=== PATIENT | female | born 1985 | race Hispanic/Latino ===

== ENCOUNTER → 2018-01-08 | Outpatient (CLI) | payer MEDICAID ==
[~2018-01-08] MED LIST: DOXY100C40 PO; SOTA80TA PO
== END | disposition home or self-care (01) ==
LOC: SHCH 14:25
PROVIDERS: ATTEND Internal Medicine Cardiovascular Disease
DX: I42.2 Other hypertrophic cardiomyopathy (principal); I50.32 Chronic diastolic (congestive) heart failure; I51.7 Cardiomegaly; I48.0 Paroxysmal atrial fibrillation; E11.9 Type 2 diabetes mellitus without complications
CPT/HCPCS: 93306

== ENCOUNTER 2018-02-20 18:04 | Emergency (ER) | payer MEDICAID ==
[2018-02-20] MEDS ORDERED: HYDROCODONE/ACETAMINOPHEN 5/325 MG TAB ONE (19:42)
== END 2018-02-20 20:10 | disposition home or self-care (01) ==
LOC: EDH 18:04
DX: Z48.01 Encounter for change or removal of surgical wound dressing (principal); E11.9 Type 2 diabetes mellitus without complications

== ENCOUNTER → 2019-04-29 | Outpatient (CLI) | payer MEDICAID | END | disposition home or self-care (01) | LOC: SHCH 11:01 | PROVIDERS: ATTEND Internal Medicine Cardiovascular Disease | DX: I42.2 Other hypertrophic cardiomyopathy (principal); R06.00 Dyspnea, unspecified | CPT/HCPCS: 93306; 93356 ==

== ENCOUNTER 2021-11-13 14:37 | Emergency (ER) | payer MEDICAID ==
[~2021-11-13] VITALS: Ht 165.1 cm; Wt 72.6 kg
[~2021-11-13 14:37] MED LIST changes: +DOXY-336 PO; -DOXY100C40 PO
[2021-11-13 15:57] VITALS: BP 110/62
[2021-11-13] MEDS ORDERED: IBUPROFEN 600 MG TABLET PO ONE (16:00)
[2021-11-13] MEDS ORDERED: IBUP-2070 PO (16:07)
[2021-11-13] MEDS ORDERED: IBUPROFEN 600 MG TABLET ONE (16:07)
== END 2021-11-13 16:23 | disposition home or self-care (01) ==
LOC: EDH 14:37
DX: S62.633A Displaced fracture of distal phalanx of left middle finger, initial encounter for closed fracture (principal); E11.9 Type 2 diabetes mellitus without complications; Z88.1 Allergy status to other antibiotic agents; Z95.810 Presence of automatic (implantable) cardiac defibrillator; X58.XXXA Exposure to other specified factors, initial encounter; Y93.89 Activity, other specified; Y92.89 Other specified places as the place of occurrence of the external cause; Y99.8 Other external cause status
CPT/HCPCS: 29130; 73140

== ENCOUNTER 2021-12-02 15:38 | Emergency (ER) | payer MEDICAID ==
[~2021-12-02] VITALS: Ht 167.6 cm; Wt 68.9 kg
[~2021-12-02 15:38] MED LIST changes: +IBUP-2070 PO
[2021-12-02] MEDS ORDERED: LIDOCAINE 1%-EPI 1:100,000 20 ML VIAL IJ SCH (16:30)
[2021-12-02] MEDS ORDERED: SULFAMETHOX-TMP DS 800/160 TAB PO SCH ×2 (16:30→17:30)
[2021-12-02] MEDS ORDERED: ONDANSETRON ODT 4MG TAB SL ONE (16:30)
[2021-12-02] MEDS ORDERED: MORPHINE 4 MG SYG IM ONE (16:30)
[2021-12-02 17:20] VITALS: BP 133/72
[2021-12-02] MEDS ORDERED: SULF1TAB42 PO (17:23)
[2021-12-02] MEDS ORDERED: OXYC-38 PO (17:23)
[2021-12-02] MEDS ORDERED: IBUP-2077 PO (17:23)
[2021-12-02] MEDS ORDERED: OXYCODONE/ACETAMIN 5/325MG TAB PO ONE (17:30)
== END 2021-12-02 17:37 | disposition home or self-care (01) ==
LOC: EDH 15:38
DX: L02.31 Cutaneous abscess of buttock (principal); E11.9 Type 2 diabetes mellitus without complications; Z79.1 Long term (current) use of non-steroidal anti-inflammatories (NSAID); Z88.1 Allergy status to other antibiotic agents; Z95.810 Presence of automatic (implantable) cardiac defibrillator
CPT/HCPCS: 99284; 10060; 96372; J3490; J2270

== ENCOUNTER 2022-08-27 16:59 | Emergency (ER) | payer MEDICAID ==
[~2022-08-27] VITALS: Ht 165.1 cm; Wt 59.9 kg
[~2022-08-27 16:59] MED LIST changes: -DOXY-336 PO; +DOXY-469 PO; +IBUP-2077 PO; +OXYC-38 PO; +SULF1TAB42 PO
[2022-08-27 17:46] VITALS: BP 121/82
[2022-08-27 18:59] LABS: BASOPHILS % (AUTO) 0.5 % (0.0-5.0); EOSINOPHILS % (AUTO) 0.5 % (0.0-8.0); HEMATOCRIT 44.2 % (36-48); LYMPHOCYTES % (AUTO) 22.5 % (21.0-51.0); MEAN CORPUSCULAR HEMOGLOBIN 29.4 pg (27.0-33.0); MEAN CORPUSCULAR HGB CONC 34.6 g/dL (32.0-36.0); MEAN CORPUSCULAR VOLUME 84.8 fL (79-99); MONOCYTES % (AUTO) 8.2 % (3.0-13.0); PLATELET COUNT (AUTO) 291 K/uL (130-400); RED BLOOD CELL COUNT(AUTO) 5.21 MIL/uL (4.00-5.50); RED CELL DISTRIBUTION WIDTH 13.1 % (11.0-15.5); WHITE BLOOD COUNT (AUTO) 11.1 K/uL (4.8-10.8)
[2022-08-27 19:16] LABS: CARBON DIOXIDE 27 mmol/L (21-32); CHLORIDE 104 mmol/L (101-111); CREATININE 0.7 mg/dL (0.5-1.5); GLOMERULAR FILTR. RATE CALC 116 mL/min (>90); GLUCOSE,RANDOM 326 mg/dL (70-105); POTASSIUM 3.5 mmol/L (3.5-5.1); SODIUM SERUM 140 mmol/L (136-145); UREA NITROGEN, BLOOD 10 mg/dL (7-18)
[2022-08-27 19:20] LABS: ACETAMINOPHEN 19 mcg/mL (10-30); ALANINE AMINOTRANSFERASE 16 U/L (12-78); ALBUMIN 3.9 g/dL (3.5-5.0); ASPARTATE AMINOTRANSFERASE 10 U/L (10-37); TOTAL PROTEIN, SERUM 7.5 g/dL (6.0-8.3)
[2022-08-27 19:21] LABS: SALICYLATE < 2.8 mg/dL (2.8-20.0)
[2022-08-27 20:34] LABS: APPEARANCE,URINE CLEAR (CLEAR); BILIRUBIN,URINE NEGATIVE (NEGATIVE); COLOR,URINE YELLOW (YELLOW); GLUCOSE, URINE (UA) 500 mg/dL (NEGATIVE); KETONES,URINE 20 mg/dL (NEGATIVE); LEUKOCYTE ESTERASE ,URINE NEGATIVE Leu/uL (NEGATIVE); NITRATE,URINE NEGATIVE (NEGATIVE); PH,URINE 5.5 (5.0-8.0); PROTEIN,URINE 20 mg/dL (NEGATIVE); UROBILINOGEN,URINE 0.2 mg/dL (0.2-1.0)
[2022-08-27 20:38] LABS: BACTERIA,URINE FEW /HPF (None Seen); MUCUS,URINE MANY LPF (None Seen); RBC,URINE 0-1 /HPF (0-1); SQUAMOUS EPITHELIAL CELL,UR RARE /HPF (0-2)
[2022-08-27 20:42] LABS: AMPHET/METH SCREEN,URINE NEGATIVE (NEGATIVE); BARBITURATE SCREEN, URINE NEGATIVE (NEGATIVE); BENZODIAZEPINES SCREEN,URINE NEGATIVE (NEGATIVE); CANNABINOID SCREEN,URINE POSITIVE (NEGATIVE); COCAINE SCREEN,URINE NEGATIVE (NEGATIVE); OPIATE SCREEN,URINE NEGATIVE (NEGATIVE); PHENCYCLIDINE SCREEN,URINE NEGATIVE (NEGATIVE)
== END 2022-08-27 22:13 | disposition home or self-care (01) ==
LOC: EDH 16:59
DX: F31.60 Bipolar disorder, current episode mixed, unspecified (principal); E11.9 Type 2 diabetes mellitus without complications; Z88.1 Allergy status to other antibiotic agents; Z95.810 Presence of automatic (implantable) cardiac defibrillator
CPT/HCPCS: 99283; 80053; 80305; 84703; 85025; 36415; 81001; G0481

== ENCOUNTER → 2022-12-16 | Outpatient (CLI) | payer MEDICAID | END | disposition home or self-care (01) | LOC: RAH 08:01 | PROVIDERS: ATTEND Internal Medicine | DX: R11.0 Nausea (principal); R10.9 Unspecified abdominal pain; E11.9 Type 2 diabetes mellitus without complications | CPT/HCPCS: 78264; A9541 ==

== ENCOUNTER 2023-04-07 00:46 | Emergency (ER) | payer MEDICAID ==
[~2023-04-07] VITALS: Ht 165.1 cm; Wt 59.4 kg
[2023-04-07 01:14] LABS: BASOPHILS # (AUTO) 0.06 K/uL (0.00-0.20); BASOPHILS % (AUTO) 0.4 % (0.0-5.0); EOSINOPHILS # (AUTO) 0.06 K/uL (0.00-0.70); EOSINOPHILS % (AUTO) 0.4 % (0.0-8.0); HEMATOCRIT 42.9 % (36-48); IMMATURE GRANULOCYTE ABSOLUTE 0.06 K/uL (0-1); LYMPHOCYTES # (AUTO) 1.9 K/uL (1.0-4.8); LYMPHOCYTES % (AUTO) 12.5 % (21.0-51.0); MEAN CORPUSCULAR HEMOGLOBIN 29.9 pg (27.0-33.0); MEAN CORPUSCULAR HGB CONC 35.2 g/dL (32.0-36.0); MONOCYTES # (AUTO) 0.8 K/uL (0.1-1.0); MONOCYTES % (AUTO) 5.3 % (3.0-13.0); NEUTROPHILS # (AUTO) 12.3 K/uL (1.8-7.7); PLATELET COUNT (AUTO) 219 K/uL (130-400); RED BLOOD CELL COUNT(AUTO) 5.05 MIL/uL (4.00-5.50); RED CELL DISTRIBUTION WIDTH 13.4 % (11.0-15.5); WHITE BLOOD COUNT (AUTO) 15.2 K/uL (4.8-10.8)
[2023-04-07 01:38] LABS: ALBUMIN 3.8 g/dL (3.5-5.0); BILIRUBIN,TOTAL 0.6 mg/dL (0.2-1.0); CREATININE 0.4 mg/dL (0.5-1.5); TOTAL PROTEIN, SERUM 7.6 g/dL (6.0-8.3)
[2023-04-07] MEDS ORDERED: POTASSIUM BICARB/CIT AC 25 MEQ TABLET.EFF PO ONE (03:00)
[2023-04-07 03:56] LABS: APPEARANCE,URINE CLOUDY (CLEAR); BILIRUBIN,URINE NEGATIVE (NEGATIVE); COLOR,URINE YELLOW (YELLOW); GLUCOSE, URINE (UA) NEGATIVE (NEGATIVE); KETONES,URINE 60 mg/dL (NEGATIVE); LEUKOCYTE ESTERASE ,URINE NEGATIVE Leu/uL (NEGATIVE); NITRATE,URINE 1+ (NEGATIVE); OCCULT BLOOD,URINE NEGATIVE (NEGATIVE); PROTEIN,URINE 20 mg/dL (NEGATIVE); UROBILINOGEN,URINE 0.2 mg/dL (0.2-1.0)
[2023-04-07 04:01] LABS: ADD UA MICROSCOPIC YES
[2023-04-07 04:03] LABS: BACTERIA,URINE RARE /HPF (None Seen); MUCUS,URINE MANY LPF (None Seen); SQUAMOUS EPITHELIAL CELL,UR RARE /HPF (0-2)
[2023-04-07] MEDS ORDERED: CEFTRIAXONE 1G VIAL IVPB ONE (08:00)
[2023-04-07 11:05] VITALS: BP 102/52; PULSE 88; RESP 16; O2SAT 100
== END 2023-04-07 11:47 | disposition left against medical advice (07) ==
LOC: EDH 00:46
DX: O21.9 Vomiting of pregnancy, unspecified (principal); O26.891 Other specified pregnancy related conditions, first trimester; R10.2 Pelvic and perineal pain; R50.9 Fever, unspecified; E11.9 Type 2 diabetes mellitus without complications; Z79.899 Other long term (current) drug therapy; Z98.890 Other specified postprocedural states; Z88.8 Allergy status to other drugs, medicaments and biological substances
CPT/HCPCS: 99285; 96365; 96366; 82550; 84484 ×3; 80053; 84702; 85025; 87088; 83605; 81001; 36415; 93005 ×2; J0696

== ENCOUNTER → 2023-09-04 | Outpatient (CLI) | payer MEDICAID ==
[2023-09-02 12:28] LABS: BASOPHILS # (AUTO) 0.05 K/uL (0.00-0.20); BASOPHILS % (AUTO) 0.5 % (0.0-5.0); EOSINOPHILS # (AUTO) 0.08 K/uL (0.00-0.70); EOSINOPHILS % (AUTO) 0.8 % (0.0-8.0); IMMATURE GRANULOCYTE ABSOLUTE 0.04 K/uL (0-1); LYMPHOCYTES % (AUTO) 20.8 % (21.0-51.0); MEAN CORPUSCULAR HEMOGLOBIN 29.3 pg (27.0-33.0); MEAN CORPUSCULAR HGB CONC 32.8 g/dL (32.0-36.0); MEAN CORPUSCULAR VOLUME 89.3 fL (79-99); MONOCYTES # (AUTO) 0.7 K/uL (0.1-1.0); MONOCYTES % (AUTO) 7.6 % (3.0-13.0); NEUTROPHILS # (AUTO) 6.6 K/uL (1.8-7.7); NEUTROPHILS % (AUTO) 69.9 % (40.0-77.0); PLATELET COUNT (AUTO) 203 K/uL (130-400); RED BLOOD CELL COUNT(AUTO) 4.03 MIL/uL (4.00-5.50); RED CELL DISTRIBUTION WIDTH 13.2 % (11.0-15.5); WHITE BLOOD COUNT (AUTO) 9.5 K/uL (4.8-10.8)
[2023-09-02 12:35] VITALS: BP 99/61; PULSE 77; RESP 16
[2023-09-02 12:41] LABS: CREATININE 0.4 mg/dL (0.5-1.0); POTASSIUM 3.5 mmol/L (3.5-5.1)
[2023-09-02 12:42] LABS: INR <= 0.93 (0.85-1.15); PROTHROMBIN TIME 10.6 SEC (9.6-11.6)
[2023-09-02 12:43] LABS: PARTIAL THROMBOPLASTIN TIME 26.1 SEC (26.3-35.5)
[~2023-09-04] VITALS: Ht 165.1 cm; Wt 74.6 kg
[~2023-09-04] MED LIST changes: -DOXY-469 PO; +ERGO500093 PO; -IBUP-2070 PO; -IBUP-2077 PO; +INSU100I47 SQ; +INSU100V12 SQ; +METF-444 PO; -OXYC-38 PO; +PREN1TAB29 PO; -SULF1TAB42 PO
[2023-09-04 06:40] VITALS: BP 98/62; PULSE 81; RESP 16
[2023-09-04] MEDS: 0.9%NACL 1000ML 1,000 ML IV ONE (07:11)
== END | disposition home or self-care (01) ==
LOC: EDSTATUS 09-02 12:00 → LAB 06:31 → DAH 06:31
PROVIDERS: ATTEND Internal Medicine Cardiovascular Disease
DX: Z45.02 Encounter for adjustment and management of automatic implantable cardiac defibrillator (principal); I48.0 Paroxysmal atrial fibrillation; E11.9 Type 2 diabetes mellitus without complications; I42.2 Other hypertrophic cardiomyopathy; Z53.8 Procedure and treatment not carried out for other reasons; Z79.4 Long term (current) use of insulin; Z83.3 Family history of diabetes mellitus; Z79.01 Long term (current) use of anticoagulants
CPT/HCPCS: 93005; 80048; 84703; 85025; 85610; 85730; 36415; 82948; J7030; A4215; A4222; A4221; A4663; A4216; A4606; A4223 ×3

== ENCOUNTER 2023-11-18 13:33 | Inpatient (IN) | payer MEDICAID ==
[~2023-11-18] VITALS: Ht 165.1 cm; Wt 76.4 kg
[2023-11-18 14:54] LABS: CREATININE 0.7 mg/dL (0.5-1.0); POTASSIUM 3.2 mmol/L (3.5-5.1)
[2023-11-18 15:03] LABS: ALBUMIN 2.4 g/dL (3.5-5.0); BILIRUBIN,TOTAL 0.2 mg/dL (0.2-1.0); MAGNESIUM 1.7 mg/dL (1.80-2.40)
[2023-11-18 15:30] LABS: APPEARANCE,URINE CLEAR (CLEAR); BILIRUBIN,URINE NEGATIVE (NEGATIVE); COLOR,URINE COLORLESS (YELLOW); GLUCOSE, URINE (UA) NEGATIVE (NEGATIVE); KETONES,URINE NEGATIVE (NEGATIVE); LEUKOCYTE ESTERASE ,URINE 25 Leu/uL (NEGATIVE); NITRATE,URINE NEGATIVE (NEGATIVE); OCCULT BLOOD,URINE LARGE (NEGATIVE); PH,URINE 5.5 (5.0-8.0); PROTEIN,URINE 10 mg/dL (NEGATIVE); UROBILINOGEN,URINE 0.2 mg/dL (0.2-1.0)
[2023-11-18 15:32] LABS: ADD UA MICROSCOPIC YES
[2023-11-18 15:39] LABS: MUCUS,URINE RARE LPF (None Seen); OTHER CASTS, URINE 1 /LPF (None Seen); SQUAMOUS EPITHELIAL CELL,UR RARE /HPF (0-2)
[2023-11-18 17:06] LABS: BASOPHILS # (AUTO) 0.04 K/uL (0.00-0.20); BASOPHILS % (AUTO) 0.5 % (0.0-5.0); EOSINOPHILS # (AUTO) 0.04 K/uL (0.00-0.70); EOSINOPHILS % (AUTO) 0.5 % (0.0-8.0); HEMATOCRIT 30.1 % (36-48); IMMATURE GRANULOCYTE ABSOLUTE 0.04 K/uL (0-1); LYMPHOCYTES # (AUTO) 1.5 K/uL (1.0-4.8); LYMPHOCYTES % (AUTO) 20.1 % (21.0-51.0); MEAN CORPUSCULAR HEMOGLOBIN 27.1 pg (27.0-33.0); MEAN CORPUSCULAR HGB CONC 31.9 g/dL (32.0-36.0); MONOCYTES # (AUTO) 0.6 K/uL (0.1-1.0); MONOCYTES % (AUTO) 7.8 % (3.0-13.0); NEUTROPHILS # (AUTO) 5.3 K/uL (1.8-7.7); NEUTROPHILS % (AUTO) 70.6 % (40.0-77.0); PLATELET COUNT (AUTO) 242 K/uL (130-400); RED BLOOD CELL COUNT(AUTO) 3.54 MIL/uL (4.00-5.50); RED CELL DISTRIBUTION WIDTH 14.4 % (11.0-15.5); WHITE BLOOD COUNT (AUTO) 7.5 K/uL (4.8-10.8)
[2023-11-18] MEDS: POTASSIUM BICARB/CIT AC 25 MEQ TABLET.EFF PO ONE (17:24)
[2023-11-18] MEDS: FUROSEMIDE 40MG VIAL IVP ONE (17:25)
[2023-11-18] MEDS ORDERED: POTASSIUM CHLORIDE 20MEQ/100ML 100 ML IV PRN (18:00)
[2023-11-18 18:10] LABS: HEMOGLOBIN A1C 6.8 % (4.0-6.0)
[2023-11-18 18:12] LABS: CREATININE 0.7 mg/dL (0.5-1.0); MAGNESIUM 1.6 mg/dL (1.80-2.40); POTASSIUM 3.2 mmol/L (3.5-5.1)
[2023-11-18] MEDS ORDERED: IOHEXOL-350 75 ML VIAL IV ONE (18:21)
[2023-11-18 19:05] LABS: THYROID STIMULATING HORMONE 0.61 uIU/mL (0.36-3.74)
[2023-11-18] MEDS: acetaMINOPHEN 500 MG TABLET PO PRN (20:04)
[2023-11-18] MEDS: POTASSIUM CHLORIDE 10% ELIXIR 20 MEQ/15 ML UDCUP PO PRN (20:14)
[2023-11-18] MEDS: FUROSEMIDE 20MG VIAL IV SCH (21:01)
[2023-11-18 21:22] LABS: CREATININE 0.7 mg/dL (0.5-1.0); MAGNESIUM 1.6 mg/dL (1.80-2.40); POTASSIUM 3.3 mmol/L (3.5-5.1)
[2023-11-18 21:23] VITALS: BP 137/75; PULSE 43; RESP 17
[2023-11-19] VITALS (9 sets, daily range): BP systolic 115–141; BP diastolic 52–76; PULSE 41–77; RESP 17–20; O2SAT 97–99
[2023-11-19] MEDS: MAGNESIUM 2GM PREMIX 50ML 50 ML IV PRN (00:14)
[2023-11-19] MEDS: KCL 20 MEQ ERTAB PO PRN (00:14)
[2023-11-19] MEDS ORDERED: INSU100I3 SQ (05:03)
[2023-11-19] MEDS ORDERED: PANT40TA54 PO (05:03)
[2023-11-19] MEDS ORDERED: SERT-439 PO (05:03)
[2023-11-19] MEDS ORDERED: INSU100V12 SQ (05:03)
[2023-11-19] MEDS ORDERED: SOTA120T PO (05:03)
[2023-11-19] MEDS ORDERED: CHOL500050 PO (05:03)
[2023-11-19] MEDS ORDERED: ACET-2079 PO (05:03)
[2023-11-19] MEDS ORDERED: PNV#1CAP15 PO (05:03)
[2023-11-19] MEDS ORDERED: ONDA-105 PO (05:03)
[2023-11-19] MEDS ORDERED: SERT-438 PO (05:03)
[2023-11-19] MEDS ORDERED: METF-910 PO (05:03)
[2023-11-19 06:07] LABS: BASOPHILS # (AUTO) 0.06 K/uL (0.00-0.20); BASOPHILS % (AUTO) 0.7 % (0.0-5.0); EOSINOPHILS # (AUTO) 0.09 K/uL (0.00-0.70); EOSINOPHILS % (AUTO) 1.1 % (0.0-8.0); HEMATOCRIT 32.2 % (36-48); IMMATURE GRANULOCYTE ABSOLUTE 0.04 K/uL (0-1); LYMPHOCYTES # (AUTO) 1.4 K/uL (1.0-4.8); LYMPHOCYTES % (AUTO) 17.2 % (21.0-51.0); MEAN CORPUSCULAR HEMOGLOBIN 27.6 pg (27.0-33.0); MEAN CORPUSCULAR VOLUME 86.3 fL (79-99); MONOCYTES # (AUTO) 0.8 K/uL (0.1-1.0); MONOCYTES % (AUTO) 9.8 % (3.0-13.0); NEUTROPHILS # (AUTO) 5.8 K/uL (1.8-7.7); NEUTROPHILS % (AUTO) 70.7 % (40.0-77.0); PLATELET COUNT (AUTO) 245 K/uL (130-400); RED BLOOD CELL COUNT(AUTO) 3.73 MIL/uL (4.00-5.50); RED CELL DISTRIBUTION WIDTH 14.5 % (11.0-15.5); WHITE BLOOD COUNT (AUTO) 8.2 K/uL (4.8-10.8)
[2023-11-19 06:20] LABS: CREATININE 0.8 mg/dL (0.5-1.0); POTASSIUM 3.3 mmol/L (3.5-5.1)
[2023-11-19] MEDS ORDERED: MAGNESIUM 2GM PREMIX 50ML 50 ML IV SCH (08:00)
[2023-11-19] MEDS: soTALol HCL 80 MG TABLET PO SCH (09:00)
[2023-11-19] MEDS ORDERED: ENOXAPARIN SODIUM 30 MG/0.3 ML SQ SCH (09:00)
[2023-11-19 09:06] LABS: PHOSPHORUS 2.8 mg/dL (2.5-4.9)
[2023-11-19 09:11] LABS: % IRON SATURATION 5.9 % (22-44)
[2023-11-19] MEDS: ENOXAPARIN SODIUM 80 MG/0.8 ML SQ SCH (09:14)
[2023-11-19] MEDS: ASPIRIN 81 MG EC TAB PO SCH (09:15)
[2023-11-19] MEDS: EMPAGLIFLOZIN 10MG TABLET PO SCH (09:15)
[2023-11-19] MEDS: FOLic ACID 1 MG TABLET PO SCH (09:15)
[2023-11-19] MEDS: DOCUSATE CALCIUM 240 MG CAP PO ONE (09:15)
[2023-11-19] MEDS: CYANOCOBALAMIN (VITAMIN B-12) 1,000 MCG TABLET PO SCH (09:16)
[2023-11-19 16:16] LABS: CREATININE 0.9 mg/dL (0.5-1.0); MAGNESIUM 1.9 mg/dL (1.80-2.40); POTASSIUM 3.5 mmol/L (3.5-5.1)
[2023-11-20 04:00] VITALS: BP 118/53; PULSE 61; RESP 19
[2023-11-20 04:38] LABS: CREATININE 0.9 mg/dL (0.5-1.0); MAGNESIUM 2.5 mg/dL (1.80-2.40); POTASSIUM 3.3 mmol/L (3.5-5.1)
[2023-11-20 08:00] VITALS: BP 133/75; PULSE 52; RESP 18; O2SAT 96
[2023-11-20] MEDS: soTALol HCL 80 MG TABLET PO ONE (10:37)
[2023-11-20 11:38] VITALS: BP 135/73; PULSE 54; RESP 16
[2023-11-20] MEDS: doCUSate SODIUM 100 MG CAP PO PRN (13:05)
[2023-11-20] MEDS: IRON sUCROse COMPLEX 100 MG/5 ML VIAL IV ONE (15:08)
[2023-11-20 16:00] VITALS: BP 114/72; PULSE 60; RESP 16
[2023-11-20] MEDS: soTALol HCL 80 MG TABLET PO SCH (21:08)
[2023-11-20] MEDS: APIXaban 5 MG TABLET PO SCH (21:09)
[2023-11-20 23:00] VITALS: BP 112/62; PULSE 57; RESP 19
[2023-11-21] VITALS (8 sets, daily range): BP systolic 113–140; BP diastolic 24–70; PULSE 54–65; RESP 14–19; O2SAT 96–98
[2023-11-21 05:44] LABS: BASOPHILS # (AUTO) 0.05 K/uL (0.00-0.20); BASOPHILS % (AUTO) 0.7 % (0.0-5.0); EOSINOPHILS # (AUTO) 0.11 K/uL (0.00-0.70); EOSINOPHILS % (AUTO) 1.6 % (0.0-8.0); HEMATOCRIT 33.9 % (36-48); IMMATURE GRANULOCYTE ABSOLUTE 0.03 K/uL (0-1); LYMPHOCYTES # (AUTO) 1.2 K/uL (1.0-4.8); LYMPHOCYTES % (AUTO) 17.7 % (21.0-51.0); MEAN CORPUSCULAR HEMOGLOBIN 27.1 pg (27.0-33.0); MEAN CORPUSCULAR VOLUME 87.4 fL (79-99); MONOCYTES # (AUTO) 0.6 K/uL (0.1-1.0); MONOCYTES % (AUTO) 8.8 % (3.0-13.0); NEUTROPHILS # (AUTO) 4.8 K/uL (1.8-7.7); NEUTROPHILS % (AUTO) 70.8 % (40.0-77.0); PLATELET COUNT (AUTO) 234 K/uL (130-400); RED BLOOD CELL COUNT(AUTO) 3.88 MIL/uL (4.00-5.50); RED CELL DISTRIBUTION WIDTH 14.4 % (11.0-15.5); WHITE BLOOD COUNT (AUTO) 6.7 K/uL (4.8-10.8)
[2023-11-21 05:59] LABS: ALBUMIN 2.6 g/dL (3.5-5.0); BILIRUBIN,TOTAL 0.2 mg/dL (0.2-1.0); CREATININE 0.8 mg/dL (0.5-1.0); MAGNESIUM 1.9 mg/dL (1.80-2.40); POTASSIUM 3.5 mmol/L (3.5-5.1); TOTAL PROTEIN, SERUM 6.4 g/dL (6.0-8.3)
[2023-11-21] MEDS ORDERED: ENOXAPARIN SODIUM 40 MG/0.4 ML SYRINGE SQ SCH (09:00)
[2023-11-22] VITALS (9 sets, daily range): BP systolic 102–134; BP diastolic 58–69; PULSE 54–68; RESP 16–20; O2SAT 54–97
[2023-11-22 05:38] LABS: BASOPHILS # (AUTO) 0.07 K/uL (0.00-0.20); BASOPHILS % (AUTO) 0.9 % (0.0-5.0); EOSINOPHILS # (AUTO) 0.16 K/uL (0.00-0.70); HEMATOCRIT 37.7 % (36-48); IMMATURE GRANULOCYTE ABSOLUTE 0.03 K/uL (0-1); LYMPHOCYTES % (AUTO) 25.8 % (21.0-51.0); MEAN CORPUSCULAR HEMOGLOBIN 26.7 pg (27.0-33.0); MEAN CORPUSCULAR HGB CONC 30.8 g/dL (32.0-36.0); MEAN CORPUSCULAR VOLUME 86.9 fL (79-99); MONOCYTES # (AUTO) 0.9 K/uL (0.1-1.0); MONOCYTES % (AUTO) 11.7 % (3.0-13.0); NEUTROPHILS # (AUTO) 4.7 K/uL (1.8-7.7); NEUTROPHILS % (AUTO) 59.2 % (40.0-77.0); PLATELET COUNT (AUTO) 270 K/uL (130-400); RED BLOOD CELL COUNT(AUTO) 4.34 MIL/uL (4.00-5.50); RED CELL DISTRIBUTION WIDTH 14.3 % (11.0-15.5); WHITE BLOOD COUNT (AUTO) 7.9 K/uL (4.8-10.8)
[2023-11-22 05:57] LABS: ALBUMIN 2.9 g/dL (3.5-5.0); BILIRUBIN,TOTAL 0.3 mg/dL (0.2-1.0); CREATININE 0.8 mg/dL (0.5-1.0); MAGNESIUM 2.2 mg/dL (1.80-2.40); POTASSIUM 3.4 mmol/L (3.5-5.1)
[2023-11-23 00:15] VITALS: BP 109/64; PULSE 63; RESP 20
[2023-11-23 04:19] LABS: BASOPHILS % (AUTO) 1.2 % (0.0-5.0); EOSINOPHILS # (AUTO) 0.19 K/uL (0.00-0.70); EOSINOPHILS % (AUTO) 2.3 % (0.0-8.0); HEMATOCRIT 45.1 % (36-48); IMMATURE GRANULOCYTE ABSOLUTE 0.06 K/uL (0-1); LYMPHOCYTES # (AUTO) 2.1 K/uL (1.0-4.8); LYMPHOCYTES % (AUTO) 25.4 % (21.0-51.0); MEAN CORPUSCULAR HEMOGLOBIN 27.2 pg (27.0-33.0); MEAN CORPUSCULAR HGB CONC 30.8 g/dL (32.0-36.0); MEAN CORPUSCULAR VOLUME 88.3 fL (79-99); MONOCYTES # (AUTO) 0.7 K/uL (0.1-1.0); MONOCYTES % (AUTO) 8.9 % (3.0-13.0); NEUTROPHILS % (AUTO) 61.5 % (40.0-77.0); PLATELET COUNT (AUTO) 287 K/uL (130-400); RED BLOOD CELL COUNT(AUTO) 5.11 MIL/uL (4.00-5.50); RED CELL DISTRIBUTION WIDTH 14.5 % (11.0-15.5); WHITE BLOOD COUNT (AUTO) 8.1 K/uL (4.8-10.8)
[2023-11-23 04:42] LABS: B-TYPE NATRIURETIC PEPTIDE 682 pg/mL (0-100)
[2023-11-23 04:43] VITALS: BP 105/58; PULSE 62; RESP 18
[2023-11-23 05:57] LABS: ALBUMIN 3.5 g/dL (3.5-5.0); BILIRUBIN,TOTAL 0.4 mg/dL (0.2-1.0); POTASSIUM 4.2 mmol/L (3.5-5.1); TOTAL PROTEIN, SERUM 7.7 g/dL (6.0-8.3)
[2023-11-23 08:00] VITALS: BP 98/46; PULSE 52; RESP 18
[2023-11-23 09:01] VITALS: O2SAT 97
[2023-11-23 09:02] VITALS: O2SAT 97
[2023-11-23] MEDS: FUROSEMIDE 20 MG TABLET PO SCH (10:07)
[2023-11-23 12:00] VITALS: BP 98/59; PULSE 55; RESP 16
== END 2023-11-23 14:48 | disposition home or self-care (01) | DRG 561 ==
LOC: EDH 13:33 → EDHIP 13:34 → 3CH 21:13
PROVIDERS: ADMIT Hospitalist; ATTEND Hospitalist
DX: O10.13 Pre-existing hypertensive heart disease complicating the puerperium (principal); I21.A1 Myocardial infarction type 2; I50.33 Acute on chronic diastolic (congestive) heart failure; E87.0 Hyperosmolality and hypernatremia; D68.59 Other primary thrombophilia; I27.20 Pulmonary hypertension, unspecified; O99.43 Diseases of the circulatory system complicating the puerperium; O99.285 Endocrine, nutritional and metabolic diseases complicating the puerperium; O90.89 Other complications of the puerperium, not elsewhere classified; I42.1 Obstructive hypertrophic cardiomyopathy; O00-O9A Pregnancy, childbirth and the puerperium; E87.6 Hypokalemia; I47.19 Other supraventricular tachycardia; I11.0 Hypertensive heart disease with heart failure; E11.65 Type 2 diabetes mellitus with hyperglycemia; D64.9 Anemia, unspecified; E83.42 Hypomagnesemia; R00.1 Bradycardia, unspecified; I48.0 Paroxysmal atrial fibrillation; O90.81 Anemia of the puerperium; O99.215 Obesity complicating the puerperium; G47.33 Obstructive sleep apnea (adult) (pediatric); I25.10 Atherosclerotic heart disease of native coronary artery without angina pectoris; Z86.718 Personal history of other venous thrombosis and embolism; Z95.810 Presence of automatic (implantable) cardiac defibrillator; Z86.79 Personal history of other diseases of the circulatory system; Z98.891 History of uterine scar from previous surgery
CPT/HCPCS: 36415; 71045; 71270; 76856; 80048; 80053; 81001; 82948; 83036; 83540; 83550; 83735; 83880; 84100; 84145; 84439; 84443; 84484; 85025; 85378; 86140; 86850; 86900; 86901; 93005; 93306; 93356; 93970; 96374; 96375; G0378; J1650; J1756; J1940; J3475; Q9967

== ENCOUNTER 2023-11-30 17:34 | Inpatient (IN) | payer MEDICAID ==
[~2023-11-30] VITALS: Ht 165.1 cm; Wt 79.2 kg
[~2023-11-30 17:34] MED LIST changes: +APIX5TAB PO; -ERGO500093 PO; +FURO20TA4 PO; -INSU100I47 SQ; -INSU100V12 SQ; -METF-444 PO; -PREN1TAB29 PO; +SOTA120T PO; -SOTA80TA PO
[2023-11-30 18:52] LABS: BASOPHILS # (AUTO) 0.05 K/uL (0.00-0.20); BASOPHILS % (AUTO) 0.6 % (0.0-5.0); EOSINOPHILS # (AUTO) 0.13 K/uL (0.00-0.70); EOSINOPHILS % (AUTO) 1.5 % (0.0-8.0); HEMATOCRIT 33.4 % (36-48); IMMATURE GRANULOCYTE ABSOLUTE 0.04 K/uL (0-1); LYMPHOCYTES # (AUTO) 1.8 K/uL (1.0-4.8); LYMPHOCYTES % (AUTO) 21.7 % (21.0-51.0); MEAN CORPUSCULAR HEMOGLOBIN 27.3 pg (27.0-33.0); MEAN CORPUSCULAR VOLUME 85.2 fL (79-99); MONOCYTES # (AUTO) 0.6 K/uL (0.1-1.0); MONOCYTES % (AUTO) 7.2 % (3.0-13.0); NEUTROPHILS # (AUTO) 5.8 K/uL (1.8-7.7); NEUTROPHILS % (AUTO) 68.5 % (40.0-77.0); PLATELET COUNT (AUTO) 213 K/uL (130-400); RED BLOOD CELL COUNT(AUTO) 3.92 MIL/uL (4.00-5.50); RED CELL DISTRIBUTION WIDTH 14.2 % (11.0-15.5); WHITE BLOOD COUNT (AUTO) 8.4 K/uL (4.8-10.8)
[2023-11-30 19:00] LABS: INR 1.01 (0.85-1.15); PROTHROMBIN TIME 10.9 SEC (9.6-11.6)
[2023-11-30 19:02] LABS: CREATININE 0.8 mg/dL (0.5-1.0); PARTIAL THROMBOPLASTIN TIME 24.2 SEC (26.3-35.5); POTASSIUM 3.8 mmol/L (3.5-5.1)
[2023-11-30 19:03] LABS: APPEARANCE,URINE CLEAR (CLEAR); BILIRUBIN,URINE NEGATIVE (NEGATIVE); COLOR,URINE LIGHT-YELLOW (YELLOW); GLUCOSE, URINE (UA) >=1000 mg/dL (NEGATIVE); KETONES,URINE NEGATIVE (NEGATIVE); LEUKOCYTE ESTERASE ,URINE NEGATIVE Leu/uL (NEGATIVE); NITRATE,URINE NEGATIVE (NEGATIVE); OCCULT BLOOD,URINE LARGE (NEGATIVE); PH,URINE 5.5 (5.0-8.0); PROTEIN,URINE NEGATIVE (NEGATIVE); UROBILINOGEN,URINE 0.2 mg/dL (0.2-1.0)
[2023-11-30 19:04] LABS: ADD UA MICROSCOPIC YES
[2023-11-30 19:05] LABS: HCG,QUALITATIVE URINE NEGATIVE (NEGATIVE)
[2023-11-30 19:09] LABS: MUCUS,URINE RARE LPF (None Seen); SQUAMOUS EPITHELIAL CELL,UR RARE /HPF (0-2); WBC,URINE 0-1 /HPF (0-1)
[2023-11-30] MEDS: INSULIN humuLIN R 100 UNIT/ML 3ML IV ONE (20:34)
[2023-11-30] MEDS ORDERED: PoTASSium chl 10% ELIXIR 20MEQ 20 MEQ/15 ML UDCUP PO PRN (21:00)
[2023-11-30] MEDS ORDERED: PoTASSium chloRIDE 20MEQ/100ML 100 ML IV PRN (21:00)
[2023-11-30] MEDS ORDERED: hydrALAZine 20MG/ML VIAL IV PRN (21:00)
[2023-11-30] MEDS ORDERED: LACTULOSE 20 GM/30 ML UDCUP PO PRN (21:00)
[2023-11-30] MEDS ORDERED: DEXTROSE 50%-WATER 50 ML DISP.SYRIN IV PRN (21:00)
[2023-11-30] MEDS ORDERED: TEMAZepam 15 MG CAPSULE PO PRN (21:00)
[2023-11-30] MEDS ORDERED: ondanSETRON 4MG INJ IVP PRN (21:00)
[2023-11-30] MEDS ORDERED: doCUSate SODIUM 100 MG CAP PO PRN (21:00)
[2023-11-30] MEDS ORDERED: GLUCAGON 1MG KIT 1 MG ML IM PRN (21:00)
[2023-11-30] MEDS ORDERED: acetaMINOPHEN 650 MG SUPPOSITORY RC PRN (21:00)
[2023-11-30] MEDS: LACTATED RINGERS 1000ML 1,000 ML IV SCH (21:16)
[2023-11-30] MEDS: INSULIN humuLIN R 100 UNIT/ML 3ML SQ SCH (21:22)
[2023-11-30 22:35] VITALS: BP 108/52; PULSE 84; RESP 18; TEMP 98.3; O2SAT 97
[2023-11-30] MEDS ORDERED: INSU100V12 SQ (22:52)
[2023-11-30] MEDS ORDERED: INSU100I3 SQ (22:52)
[2023-11-30] MEDS ORDERED: METF-444 PO (22:52)
[2023-11-30] MEDS: PoTASSium chloRIDE 20MEQ ER 20 MEQ ERTAB PO PRN (23:12)
[2023-12-01] VITALS (9 sets, daily range): BP systolic 88–102; BP diastolic 52–67; PULSE 64–98; RESP 14–18; TEMP 97.5–99; O2SAT 99–100
[2023-12-01] MEDS: HYDROcodone/APAP 5/325 1 TAB TABLET PO PRN (00:32)
[2023-12-01 03:33] LABS: BASOPHILS # (AUTO) 0.04 K/uL (0.00-0.20); BASOPHILS % (AUTO) 0.5 % (0.0-5.0); EOSINOPHILS % (AUTO) 2.5 % (0.0-8.0); HEMATOCRIT 29.5 % (36-48); IMMATURE GRANULOCYTE ABSOLUTE 0.07 K/uL (0-1); LYMPHOCYTES # (AUTO) 2.2 K/uL (1.0-4.8); LYMPHOCYTES % (AUTO) 27.8 % (21.0-51.0); MEAN CORPUSCULAR HEMOGLOBIN 27.5 pg (27.0-33.0); MEAN CORPUSCULAR HGB CONC 32.5 g/dL (32.0-36.0); MEAN CORPUSCULAR VOLUME 84.5 fL (79-99); MONOCYTES # (AUTO) 0.7 K/uL (0.1-1.0); MONOCYTES % (AUTO) 9.1 % (3.0-13.0); NEUTROPHILS # (AUTO) 4.7 K/uL (1.8-7.7); NEUTROPHILS % (AUTO) 59.2 % (40.0-77.0); PLATELET COUNT (AUTO) 207 K/uL (130-400); RED BLOOD CELL COUNT(AUTO) 3.49 MIL/uL (4.00-5.50); RED CELL DISTRIBUTION WIDTH 14.1 % (11.0-15.5)
[2023-12-01 03:55] LABS: CREATININE 0.6 mg/dL (0.5-1.0); MAGNESIUM 1.3 mg/dL (1.80-2.40); PHOSPHORUS 2.5 mg/dL (2.5-4.9); POTASSIUM 3.6 mmol/L (3.5-5.1); THYROID STIMULATING HORMONE 0.79 uIU/mL (0.36-3.74)
[2023-12-01 03:56] LABS: HEMOGLOBIN A1C 7.3 % (4.0-6.0)
[2023-12-01] MEDS: MAGNESIUM 2GM PREMIX 50ML 50 ML IV PRN (04:04)
[2023-12-01] MEDS: soTALol HCL 80 MG TABLET PO SCH (09:00)
[2023-12-01] MEDS: furoSEMIDE 20 MG TABLET PO SCH (09:00)
[2023-12-01] MEDS: FERROUS SULFATE 325 MG TABLET.DR PO SCH (09:26)
[2023-12-01] MEDS: acetaMINOPHEN 325 MG TAB PO PRN (11:53)
[2023-12-02] VITALS (14 sets, daily range): BP systolic 87–146; BP diastolic 50–83; PULSE 68–83; RESP 14–18; TEMP 98–99.2; O2SAT 98
[2023-12-02] MEDS: VANCOMYCIN KIT 1 GM/250 ML IV.KIT IV ONE (09:27)
[2023-12-02] MEDS ORDERED: VANCOMYCIN 1G/250ML KIT 500 ML IV ONE (17:20)
[2023-12-02] MEDS ORDERED: LIDOCAINE HCL 400MG/20ML VIAL ONE (17:20)
[2023-12-02] MEDS ORDERED: LIDOCAINE HCL 1% MDV 50ML VIAL ONE (17:33)
[2023-12-02] MEDS ORDERED: BUPIvacaine/PF 0.25% 30ML VIAL IJ ONE (17:33)
[2023-12-02] MEDS ORDERED: MEPERIDINE-PF 25 MG/ML SYG ONE ×2 (17:41→17:59)
[2023-12-02] MEDS ORDERED: MIDAZOLAM HCL 1 MG/ML 2ML VIAL ONE ×2 (17:42→17:59)
[2023-12-02] MEDS ORDERED: BACITRACIN 1 EACH PACKET TP ONE (18:20)
[2023-12-02] MEDS: acetaMINOPHEN 500 MG TABLET PO PRN (21:14)
[2023-12-03] VITALS (9 sets, daily range): BP systolic 92–110; BP diastolic 54–75; PULSE 64–86; RESP 16–19; TEMP 97.8–98.8; O2SAT 96–99
[2023-12-03 06:13] LABS: BASOPHILS # (AUTO) 0.03 K/uL (0.00-0.20); BASOPHILS % (AUTO) 0.4 % (0.0-5.0); EOSINOPHILS # (AUTO) 0.14 K/uL (0.00-0.70); EOSINOPHILS % (AUTO) 2.1 % (0.0-8.0); HEMATOCRIT 25.1 % (36-48); IMMATURE GRANULOCYTE ABSOLUTE 0.09 K/uL (0-1); LYMPHOCYTES # (AUTO) 1.8 K/uL (1.0-4.8); LYMPHOCYTES % (AUTO) 26.1 % (21.0-51.0); MEAN CORPUSCULAR HEMOGLOBIN 27.3 pg (27.0-33.0); MEAN CORPUSCULAR HGB CONC 31.1 g/dL (32.0-36.0); MEAN CORPUSCULAR VOLUME 87.8 fL (79-99); MONOCYTES # (AUTO) 0.6 K/uL (0.1-1.0); MONOCYTES % (AUTO) 8.4 % (3.0-13.0); NEUTROPHILS # (AUTO) 4.2 K/uL (1.8-7.7); NEUTROPHILS % (AUTO) 61.7 % (40.0-77.0); PLATELET COUNT (AUTO) 191 K/uL (130-400); RED BLOOD CELL COUNT(AUTO) 2.86 MIL/uL (4.00-5.50); RED CELL DISTRIBUTION WIDTH 14.8 % (11.0-15.5); WHITE BLOOD COUNT (AUTO) 6.8 K/uL (4.8-10.8)
[2023-12-03 06:25] LABS: ALBUMIN 2.4 g/dL (3.5-5.0); BILIRUBIN,TOTAL 0.3 mg/dL (0.2-1.0); CREATININE 0.7 mg/dL (0.5-1.0); TOTAL PROTEIN, SERUM 5.6 g/dL (6.0-8.3)
[2023-12-03 10:38] LABS: MEAN CORPUSCULAR HEMOGLOBIN 27.2 pg (27.0-33.0); MEAN CORPUSCULAR HGB CONC 31.1 g/dL (32.0-36.0); MEAN CORPUSCULAR VOLUME 87.4 fL (79-99); PLATELET COUNT (AUTO) 215 K/uL (130-400); RED BLOOD CELL COUNT(AUTO) 3.09 MIL/uL (4.00-5.50); RED CELL DISTRIBUTION WIDTH 14.9 % (11.0-15.5); WHITE BLOOD COUNT (AUTO) 6.9 K/uL (4.8-10.8)
[2023-12-03 11:07] LABS: LYMPHOCYTES % (MANUAL) 18 % (22-44); MAN.DIFF COMMENT-IMPRESSION MANUAL DIFFERENTIAL; MONOCYTES % (MANUAL) 4 % (2-9); PLATELET MORPHOLOGY COMMENT ADEQUATE; SEGMENTED NEUTROPHILS % 78 % (40-70); TOTAL CELLS COUNTED 100
[2023-12-03 11:08] LABS: PARTIAL THROMBOPLASTIN TIME 23.9 SEC (26.3-35.5); PROTHROMBIN TIME 10.8 SEC (9.6-11.6)
[2023-12-03] MEDS ORDERED: MAGNESIUM 2GM PREMIX 50ML 50 ML IV SCH (14:00)
[2023-12-03] MEDS ORDERED: PHARMACY COMMUNICATION MISC SCH ×2 (14:30)
[2023-12-03] MEDS: TRANEXAMIC ACID 1,000 MG in 0.9%NACL 100ML 100 ML IV ONE (15:02)
[2023-12-03 15:09] LABS: BASOPHILS # (AUTO) 0.04 K/uL (0.00-0.20); BASOPHILS % (AUTO) 0.6 % (0.0-5.0); EOSINOPHILS # (AUTO) 0.09 K/uL (0.00-0.70); EOSINOPHILS % (AUTO) 1.3 % (0.0-8.0); HEMATOCRIT 24.7 % (36-48); IMMATURE GRANULOCYTE ABSOLUTE 0.06 K/uL (0-1); LYMPHOCYTES # (AUTO) 1.8 K/uL (1.0-4.8); LYMPHOCYTES % (AUTO) 25.5 % (21.0-51.0); MEAN CORPUSCULAR HEMOGLOBIN 27.2 pg (27.0-33.0); MEAN CORPUSCULAR VOLUME 85.2 fL (79-99); MONOCYTES # (AUTO) 0.5 K/uL (0.1-1.0); MONOCYTES % (AUTO) 7.3 % (3.0-13.0); NEUTROPHILS # (AUTO) 4.6 K/uL (1.8-7.7); NEUTROPHILS % (AUTO) 64.5 % (40.0-77.0); PLATELET COUNT (AUTO) 194 K/uL (130-400); RED CELL DISTRIBUTION WIDTH 14.8 % (11.0-15.5); WHITE BLOOD COUNT (AUTO) 7.1 K/uL (4.8-10.8)
[2023-12-03] MEDS: acetaMINOPHEN WITH coDEINE 1 TAB TAB PO PRN (16:52)
[2023-12-04] VITALS: BP 92/53; PULSE 57; RESP 18; TEMP 98.7
[2023-12-04] MEDS ORDERED: TRANEXAMIC ACID 1,000 MG in 0.9%NACL 100ML 100 ML IV ONE (03:00)
[2023-12-04 04:00] VITALS: BP 111/65; PULSE 79; RESP 18; TEMP 98.6
[2023-12-04 04:38] LABS: BASOPHILS # (AUTO) 0.02 K/uL (0.00-0.20); BASOPHILS % (AUTO) 0.3 % (0.0-5.0); EOSINOPHILS # (AUTO) 0.11 K/uL (0.00-0.70); EOSINOPHILS % (AUTO) 1.4 % (0.0-8.0); HEMATOCRIT 25.8 % (36-48); IMMATURE GRANULOCYTE ABSOLUTE 0.09 K/uL (0-1); LYMPHOCYTES # (AUTO) 1.9 K/uL (1.0-4.8); LYMPHOCYTES % (AUTO) 24.7 % (21.0-51.0); MEAN CORPUSCULAR HGB CONC 32.6 g/dL (32.0-36.0); MONOCYTES # (AUTO) 0.6 K/uL (0.1-1.0); MONOCYTES % (AUTO) 7.9 % (3.0-13.0); NEUTROPHILS % (AUTO) 64.5 % (40.0-77.0); NUCLEATED RED BLOOD CELLS 0.3 % (0.0-0.19); PLATELET COUNT (AUTO) 226 K/uL (130-400); WHITE BLOOD COUNT (AUTO) 7.8 K/uL (4.8-10.8)
[2023-12-04 04:50] LABS: INR 0.97 (0.85-1.15); PROTHROMBIN TIME 10.5 SEC (9.6-11.6)
[2023-12-04 05:08] LABS: ALBUMIN 2.8 g/dL (3.5-5.0); BILIRUBIN,TOTAL 0.3 mg/dL (0.2-1.0); CREATININE 0.8 mg/dL (0.5-1.0); MAGNESIUM 1.7 mg/dL (1.80-2.40); POTASSIUM 3.7 mmol/L (3.5-5.1); TOTAL PROTEIN, SERUM 6.2 g/dL (6.0-8.3)
[2023-12-04 07:54] VITALS: O2SAT 99
[2023-12-04 08:15] VITALS: BP 104/65; PULSE 75; RESP 16; TEMP 98.7
[2023-12-04] MEDS: furoSEMIDE 20 MG TABLET PO SCH (09:00)
[2023-12-04] MEDS ORDERED: MAGNESIUM 2GM PREMIX 50ML 50 ML IV SCH (09:00)
[2023-12-04] MEDS: PoTASSium chloRIDE 20MEQ ER 20 MEQ ERTAB PO ONE (11:07)
[2023-12-04 11:54] VITALS: BP 101/58; PULSE 64; RESP 18; TEMP 98.1
[2023-12-04] MEDS ORDERED: SOTA80TA PO (13:14)
[2023-12-04] MEDS ORDERED: FURO20TA6 PO (13:14)
[2023-12-06 03:10] LABS: DRVVT-LUPUS ANTICOAGULANT 36.2 sec (0.0-47.0)
== END 2023-12-04 14:05 | disposition home or self-care (01) | DRG 179 ==
LOC: EDH 17:34 → OBSVTOIN 17:35 → EDHIP 17:35 → 3DH 22:16
PROVIDERS: ADMIT Hospitalist; ATTEND Hospitalist
PROC: 02PA3MZ Removal of Cardiac Lead from Heart, Percutaneous Approach (ICD-10-PCS; principal; 2023-12-02)
PROC: 02H63KZ Insertion of Defibrillator Lead into Right Atrium, Percutaneous Approach (ICD-10-PCS; 2023-12-02)
PROC: 0JH608Z Insertion of Defibrillator Generator into Chest Subcutaneous Tissue and Fascia, Open Approach (ICD-10-PCS; 2023-12-02)
PROC: 02HK3KZ Insertion of Defibrillator Lead into Right Ventricle, Percutaneous Approach (ICD-10-PCS; 2023-12-02)
PROC: 0JPT0PZ Removal of Cardiac Rhythm Related Device from Trunk Subcutaneous Tissue and Fascia, Open Approach (ICD-10-PCS; 2023-12-02)
DX: I48.0 Paroxysmal atrial fibrillation (principal); I27.20 Pulmonary hypertension, unspecified; E11.649 Type 2 diabetes mellitus with hypoglycemia without coma; D62 Acute posthemorrhagic anemia; I42.1 Obstructive hypertrophic cardiomyopathy; N93.9 Abnormal uterine and vaginal bleeding, unspecified; I47.20 Ventricular tachycardia, unspecified; I47.19 Other supraventricular tachycardia; E11.65 Type 2 diabetes mellitus with hyperglycemia; Z86.79 Personal history of other diseases of the circulatory system; I50.32 Chronic diastolic (congestive) heart failure; Z95.810 Presence of automatic (implantable) cardiac defibrillator; Z79.01 Long term (current) use of anticoagulants; Z79.4 Long term (current) use of insulin; Z88.8 Allergy status to other drugs, medicaments and biological substances; Z88.1 Allergy status to other antibiotic agents
CPT/HCPCS: 33263; 36415; 76856; 80048; 80053; 81001; 81025; 81241; 82010; 82948; 83036; 83090; 83735; 83880; 84100; 84443; 85018; 85025; 85300; 85303; 85306; 85378; 85610; 85730; 85732; 86147; 96374; 99156; 99157; C1721; G0378; J1815; J2175; J2250; J3370; J3475; J3490; J7120; J0665

== ENCOUNTER 2024-05-28 01:30 | Emergency (ER) | payer MEDICAID ==
[~2024-05-28] VITALS: Ht 165.1 cm; Wt 73.5 kg
[~2024-05-28 01:30] MED LIST changes: -APIX5TAB PO; -FURO20TA4 PO; +FURO20TA6 PO; +INSU100I3 SQ; +INSU100V12 SQ; +METF-444 PO; -SOTA120T PO; +SOTA80TA PO
[2024-05-28] MEDS ORDERED: CEPH500B PO (01:57)
--- NOTE | 2024-05-28 02:08 | ERN ---
General Chief Complaint: Finger Injury Stated Complaint: C/O PAIN WITH SWELLING TO LEFT MIDDLE FINGER Time Seen by MD: 01:33 Time Seen by Midlevel: 01:33 Source: patient History of Present Illness Initial Comments Patient is a 39-year-old female presenting to the ER for evaluation of pain and swelling to her left middle finger. Denies any trauma to her finger. Denies any other symptoms Allergies: Coded Allergies: medroxyprogesterone (Unverified Allergy, Mild, RASH, 01/03/15) ciprofloxacin (Unverified Adverse Reaction, Intermediate, 11/26/16) pt feels nauseated Home Meds Active Scripts Cephalexin Monohydrate (Keflex) 500 Mg Cap, 500 MG PO BID for 7 Days, #14 CAP Prov:BRYN OLEARY 05/28/24 Sotalol HCl (Sotalol) 80 Mg Tablet, 120 MG PO BID, #60 TAB Prov:CRISTIANE ALDRIDGE EDUCATION RN 12/04/23 Furosemide (Lasix 20Mg Tab) 20 Mg Tablet, 20 MG PO DAILY, #60 TAB Prov:CRISTIANE ALDRIDGE EDUCATION RN 12/04/23 Reported Medications Metformin HCl (Metformin HCl) 500 Mg Tablet, 500 MG PO BID, TAB 11/30/23 Insulin Detemir (Levemir) 100 Unit/Ml Vial, 12 UNIT SQ HS, VIAL 11/30/23 Insulin Aspart (Novolog Flexpen) 100 Unit/Ml (3 Ml) Insuln.pen, 15 UNIT SQ DAILY, SYRINGE 11/30/23 Past Medical History Past Medical History: Diabetes-Type II Medical History Other: HYPERTROPHIC CARDIOMYOPATHY Past Surgical History: Pacer/AICD, Surgical History Other: DEFIBRALOTOR Social History Social History: Lives with family Female( History) History: Not Applicable LMP: Apr 25, 2024 : 14 Para: 1 Aborts: 13 ROS Dictation CONSTITUTIONAL: Negative except for HPI HEAD/FACE: Negative except for HPI EENT: Negative except for HPI RESPIRATORY: Negative except for HPI GASTROINTESTINAL/ABDOMINAL: Negative except for HPI GENITOURINARY: Negative except for HPI MUSCULOSKELETAL: Negative except for HPI INTEGUMENTARY: Negative except for HPI NEUROLOGICAL/PSYCH: Negative except for HPI HEMATOLOGIC/LYMPHATIC: Negative except for HPI All Systems Negative, Except as noted above. 13 point review of systems assessed and all negative except for above. Physical Exam Physical Exam Dictation PHYSICAL EXAM: GENERAL: alert,, awake oriented x 3 HEENT: EOMI, Sclera non icteric, moist mucosa NECK: Supple, no JVD, trachea midline LUNGS: Clear breath sounds bilaterally. No wheezes HEART: Regular rate and rhythm. Normal S1 and S2, without murmurs ABD: Abdomen soft, nontender. Bowel sounds present EXT: Paronychia to the left middle finger NEURO: Alert and oriented to person, follows commands MDM MDM: 39-year-old female presenting to the emergency department with pain and swelling to her left middle finger. On exam there is a paronychia to the left middle finger. There is erythema and what appears to be the start of an abscess to the distal aspect of the left middle finger. I offered incision and drainage to the patient but she states she was terrified of needles and would like to avoid any procedure. She would like pain medication and antibiotics p.o.. She was refusing anything that involves needles. I did offer Rocephin IM but she refused. The patient was given Keflex in the emergency department as well as [place]. She will be discharged home with a prescription for Keflex. Differential diagnosis: There are no social concerns with this patient. Prescription drug management Prescriptions will include: None Medical management and examination interpretation discussions were had by me w ith other qualified healthcare professionals as indicated for the patient's care. ED Course Orders Procedure Category Date Status Time Hydrocodone/Apap PHA 05/28/24 Complete 5/325 ([place] 5/325mg) 02:00 Ibuprofen (Motrin) PHA 05/28/24 Complete 02:00 Cephalexin 500 Mg PHA 05/28/24 Complete Capsule (Keflex 500 Mg 02:00 Current Medications Medications (Trade) Dose Ordered Sig/Surya Route PRN Reason Start Time Stop Time Status Last Admin Dose Admin Acetaminophen/ Hydrocodone Bitart (NORco 5/325MG) 1 tab ONCE ONCE PO 05/28/24 02:00 05/28/24 02:01 DC 05/28/24 02:31 Cephalexin (Keflex 500 MG CAPS) 500 mg ONCE ONCE PO 05/28/24 02:00 05/28/24 02:01 DC 05/28/24 02:30 Ibuprofen (moTRIN) 400 mg ONCE ONCE PO 05/28/24 02:00 05/28/24 02:01 DC 05/28/24 02:30 Vital Signs Date Time Temp Pulse Resp B/P (MAP) Pulse Ox O2 Delivery O2 Flow Rate FiO2 05/28/24 02:38 98.4 79 18 131/68 99 Room Air* 0 21 05/28/24 01:32 99.0 81 18 126/74 96 DX & DISP Disposition: Discharge Departure Impression: Primary Impression: Paronychia Condition: Stable Scripts Cephalexin Monohydrate (Keflex) 500 Mg Cap 500 MG PO BID for 7 Days, #14 CAP Prov: BRYN OLEARY 05/28/24 Additional Instructions: Your physical examination is consistent with what appears to be a small infection. You were given antibiotics and pain medication in the ER. Please take your antibiotics as prescribed. Follow up with your primary care doctor in 2-3 days for repeat evaluation. You may take Tylenol and Motrin as needed for pain. Referrals: TAVIA SANDHU DO (PCP) Time of Disposition: 01:56 I have reviewed the case, and I agree with, Diagnosis and Plan I performed the substantive portion of the visit. I have reviewed and personally made and approve the management plan that is documented in the note by myself or the DIANE. I acknowledge for responsibility for the patient's management plan. BRYN OLEARY May 28, 2024 02:08
[2024-05-28] MEDS: cePHALexin 500 MG CAPSULE PO ONE (02:30)
[2024-05-28] MEDS: ibuPROFEN 400 MG TABLET PO ONE (02:30)
[2024-05-28] MEDS: HYDROcodone/APAP 5/325 1 TAB TABLET PO ONE (02:31)
[2024-05-28 02:38] VITALS: BP 131/68; PULSE 79; RESP 18; TEMP 98.5; O2SAT 99
== END 2024-05-28 02:49 | disposition home or self-care (01) ==
LOC: EDH 01:30
DX: L03.012 Cellulitis of left finger (principal); E11.9 Type 2 diabetes mellitus without complications; Z79.4 Long term (current) use of insulin; Z79.84 Long term (current) use of oral hypoglycemic drugs; Z79.899 Other long term (current) drug therapy; Z88.1 Allergy status to other antibiotic agents; Z95.810 Presence of automatic (implantable) cardiac defibrillator
CPT/HCPCS: 99284

== ENCOUNTER → 2024-07-15 | Outpatient (CLI) | payer MEDICAID ==
[~2024-07-15] MED LIST changes: +CEPH500B PO
[2024-07-15 16:20] LABS: BASOPHILS # (AUTO) 0.06 K/uL (0.00-0.20); BASOPHILS % (AUTO) 0.6 % (0.0-5.0); HEMATOCRIT 38.4 % (36-48); IMMATURE GRANULOCYTE ABSOLUTE 0.04 K/uL (0-1); LYMPHOCYTES % (AUTO) 20.7 % (21.0-51.0); MEAN CORPUSCULAR HEMOGLOBIN 21.6 pg (27.0-33.0); MEAN CORPUSCULAR HGB CONC 29.4 g/dL (32.0-36.0); MEAN CORPUSCULAR VOLUME 73.4 fL (79-99); MONOCYTES # (AUTO) 0.7 K/uL (0.1-1.0); MONOCYTES % (AUTO) 6.8 % (3.0-13.0); NEUTROPHILS # (AUTO) 6.8 K/uL (1.8-7.7); NEUTROPHILS % (AUTO) 70.5 % (40.0-77.0); PLATELET COUNT (AUTO) 242 K/uL (130-400); RED BLOOD CELL COUNT(AUTO) 5.23 MIL/uL (4.00-5.50); RED CELL DISTRIBUTION WIDTH 16.1 % (11.0-15.5); WHITE BLOOD COUNT (AUTO) 9.7 K/uL (4.8-10.8)
[2024-07-15 16:41] LABS: B-TYPE NATRIURETIC PEPTIDE 130 pg/mL (0-100)
[2024-07-15 16:48] LABS: ALBUMIN 3.5 g/dL (3.5-5.0); BILIRUBIN,TOTAL 0.5 mg/dL (0.2-1.0); MAGNESIUM 1.6 mg/dL (1.80-2.40); POTASSIUM 3.8 mmol/L (3.5-5.1); THYROID STIMULATING HORMONE 0.45 uIU/mL (0.36-3.74); TOTAL PROTEIN, SERUM 7.5 g/dL (6.0-8.3)
== END | disposition home or self-care (01) ==
LOC: LAB 13:41
PROVIDERS: ATTEND Internal Medicine Cardiovascular Disease
DX: I42.2 Other hypertrophic cardiomyopathy (principal); E83.42 Hypomagnesemia; I50.31 Acute diastolic (congestive) heart failure
CPT/HCPCS: 36415; 80053; 82306; 83735; 83880; 84443; 85025